=== PATIENT | female | born 2000 | race Caucasian/White ===

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

== ENCOUNTER 2024-06-07 10:35 | Emergency (ER) | payer OTHER ==
[~2024-06-07] VITALS: Ht 172.7 cm; Wt 143.3 kg
[2024-06-07] MEDS ORDERED: CLONIDINE HCL0.1 MG PO (11:02)
[2024-06-07] MEDS ORDERED: BUPROPION XL150 MG PO (11:02)
[2024-06-07 11:17] VITALS: BP 133/82
== END 2024-06-07 11:13 | disposition home or self-care (01) ==
LOC: ED 10:35
DX: S90.121A Contusion of right lesser toe(s) without damage to nail, initial encounter (principal); W20.8XXA Other cause of strike by thrown, projected or falling object, initial encounter
CPT/HCPCS: 73660; 99283